=== PATIENT | male | born 1970 | race Caucasian/White ===

== ENCOUNTER 2022-03-28 21:32 | Emergency (ER) | payer OTHER, SELFPAY ==
[2022-03-28 21:38] VITALS: BP 101/56; BP 70/50; PULSE 100; PULSE 65; RESP 20; TEMP 36.6; O2SAT 94; BMI 26.9
[2022-03-28] MEDS: 0.9 % Sodium Chloride 1,000 ML 999 ML IVCONT (21:47)
[2022-03-28] MEDS: Famotidine/PF 20 MG/2 ML VIAL IVPUSH (21:47)
[2022-03-28] MEDS: methylPREDNISolone Sod Succ 125 MG/2 ML VIAL IVPUSH (21:47)
--- NOTE | 2022-03-28 21:52 | ED.ALLEREA ---
HPI - Allergic Reaction General Chief complaint: Allergic Reaction Stated complaint: allergic reaction, syncope Time Seen by Provider: 03/28/22 21:46 Source: patient and EMS Mode of arrival: EMS Limitations: no limitations History of Present Illness HPI narrative: Patient comes to the emergency room complaining of an allergic reaction to bees. Patient states that he was in the back of the building, outside he was stung multiple times by bees. EMS was called. Patient's initial systolic pressure was in the 60s, patient was altered. Related Data Previous Rx's Medication Instructions Recorded omeprazole 40 mg capsule,delayed 40 mg PO DAILY #30 caps 02/02/21 release epinephrine 0.3 mg/0.3 mL 0.3 mg (0.3 mL) IM Q4H PRN 03/29/22 injection, auto-injector (EpiPen) anaphylaxis #2 ea prednisone 20 mg tablet 40 mg PO DAILY 3 days #6 tabs 03/29/22 Allergies Allergy/AdvReac Type Severity Reaction Status Date / Time bee pollen [BEE STINGS] Allergy Unknown UNKNOWN Unverified 02/08/21 16:10 Review of Systems Review of Systems: Constitutional : No Weight loss, No Fever, No Chills, No Night Sweats, No Fatigue, No Malaise ENT/Mouth : No Hearing loss, No Ear Pain, No Nasal Congestion, No Sinus Pain, No Hoarseness, No sore throat, No Rhinorrhea, No Swallowing Difficulty Eyes: No Eye Pain, No Swelling, No Redness, No Foreign Body, No Discharge, No Vision Changes Cardiovascular : No Chest Pain, No SOB, No Dyspnea on Exertion, No Orthopnea, No Edema, No Palpitations Respiratory : No Cough, No Sputum, No Wheezing, No Smoke Exposure, No Dyspnea Gastrointestinal : No Nausea, No Vomiting, No Diarrhea, No Constipation, No abdominal Pain, No Hematochezia, No Melena Genitourinary : no irregular bleeding, No Dysuria, No Urinary Frequency, No Hematuria, No Urinary Incontinence, No Urgency, No Flank Pain, No Urinary Flow Changes, No Hesitancy Musculoskeletal : No joint pain, No Myalgias, No Joint Swelling Skin : No Skin Lesions, No rash Neuro : No Weakness, No Numbness, No Paresthesias, No Loss of Consciousness, No Dizziness, No Headache Psych : No Anxiety/Panic, No Depression, No SI/HI/AH/VH, No Social Issues, Heme/Lymph: No Bruising, No Bleeding,No Lymphadenopathy Endocrine : No Polyuria, No Polydipsia, No Temperature Intolerance [facility] Social History Social History (System 02/08/21 @ 16:10 by Ivis Smith) Alcohol intake: current Alcohol intake frequency: a few times a week Alcohol type: beer Patient Tobacco Use Status: Current everyday Tobacco user Smoked in Last 30 Days: Yes Use of substances other than those prescribed or required for medical reasons: Yes Substance Use Type: Marijuana Substance Use Frequency: Chronic Longstanding Advance Directives: No Advance Directives Information Provided: No Physical Exam ED Vital Signs: Vital Signs - 24 hr 03/28/22 21:38 03/28/22 23:59 Temperature 97.9 F 97.9 F Pulse Rate 65 63 Respiratory Rate 20 16 Blood Pressure 101/56 L 133/70 Pulse Oximetry 94 100 Oxygen Delivery Method Nasal Cannula Nasal Cannula Oxygen Flow Rate 2 BMI result Body Mass Index 26.9 Course Course Course Narrative: Patient received from EMS epinephrine 0.3 mg and 50 mg of Benadryl. Also, in the emergency room patient received 125 mg of Solu-Medrol and 20 mg of Pepcid, patient also received 1 L of normal saline. Overall, patient is doing much better, no hives, no skin erythema, lungs are clear. Patient complaining of leg pain, provided with Tylenol. Lower extremities are not swollen, no erythema. Discharge Plan Discharge Clinical Impression: Anaphylaxis Patient Disposition: Home, Self-Care Instructions: Insect Bite or Sting (ED), Anaphylaxis (ED) Additional Instructions: Please follow-up with your primary care physician tomorrow. If you have any worsening or new symptoms, please return to the emergency room or call 911 Prescriptions: New prednisone 20 mg tablet 40 mg PO DAILY 3 Days Qty: 6 0RF epinephrine [EpiPen] 0.3 mg/0.3 mL auto-injector 0.3 mg IM Q4H PRN (Reason: anaphylaxis) Qty: 2 0RF No Action omeprazole 40 mg capsule,delayed release(DR/EC) 40 mg PO DAILY Qty: 30 0RF
[2022-03-28 23:59] VITALS: BP 133/70; PULSE 63; RESP 16; TEMP 36.6; O2SAT 100
== END 2022-03-29 01:11 | disposition home or self-care (01) ==
PROVIDERS: Emergency Provider Emergency Medicine
DX: T78.2XXA Anaphylactic shock, unspecified, initial encounter (principal); T63.441A Toxic effect of venom of bees, accidental (unintentional), initial encounter; X58.XXXA Exposure to other specified factors, initial encounter; F17.200 Nicotine dependence, unspecified, uncomplicated; F12.90 Cannabis use, unspecified, uncomplicated
CPT/HCPCS: 96361; 96374; 96375; 99284; J2930

== ENCOUNTER 2022-12-09 00:15 | Emergency (ER) | payer OTHER, SELFPAY ==
[2022-12-09 00:20] VITALS: BP 164/72; PULSE 63; O2SAT 96; BMI 19.8
[2022-12-09 00:29] VITALS: BP 158/94; PULSE 98; RESP 18; TEMP 37.2; O2SAT 97
--- NOTE | 2022-12-09 00:36 | ED.GENADULT ---
HPI - General Adult General Chief complaint: ETOH/Substance Use Stated complaint: Drug use Time Seen by Provider: 12/09/22 00:22 Source: patient and EMS Mode of arrival: EMS Limitations: no limitations History of Present Illness HPI narrative: 52-year-old male with history of drug abuse presents found unresponsive. He was arousable by painful stimuli. Since then he has been alert and awake. He denies suicidal or homicidal ideation. He admits to smoking marijuana but he denies any additional drug use or alcohol ingestion. Denies any chest pain, shortness breath, palpitations. He describes the symptoms as mild at this time. He would like to go home. Related Data Previous Rx's Medication Instructions Recorded omeprazole 40 mg capsule,delayed 40 mg PO DAILY #30 caps 02/02/21 release epinephrine 0.3 mg/0.3 mL 0.3 mg (0.3 mL) IM Q4H PRN 03/29/22 injection, auto-injector (EpiPen) anaphylaxis #2 ea prednisone 20 mg tablet 40 mg PO DAILY 3 days #6 tabs 03/29/22 Allergies Allergy/AdvReac Type Severity Reaction Status Date / Time bee pollen [BEE STINGS] Allergy Unknown UNKNOWN Unverified 02/08/21 16:10 [facility], [facility] Social History Social History Alcohol intake: unknown Patient Tobacco Use Status: Current everyday Tobacco user Smoked in Last 30 Days: No Use of substances other than those prescribed or required for medical reasons: Unknown Substance Use Type: Marijuana Advance Directives: No Advance Directives Information Provided: No Physical Exam ED Vital Signs: Vital Signs - 24 hr 12/09/22 00:29 Temperature 98.9 F Pulse Rate 98 Respiratory Rate 18 Blood Pressure 158/94 H Pulse Oximetry 97 Oxygen Delivery Method Room Air BMI result Body Mass Index 19.8 GEN: Well developed, no acute distress, alert, oriented HEENT: Normocephalic, atraumatic, normal external ears, nose appears normal, no oropharyngeal edema or exudates Eyes: Normal to appearance Neck: Supple, no lymphadenopathy Respiratory: Talks in complete sentences, no respiratory distress, clear to auscultation bilaterally Cardiovascular: Regular rate and rhythm, no murmurs rubs or gallops Abdomen: Soft, nontender, nondistended, no guarding, no rebound Back: No CVA tenderness Extremities: No clubbing cyanosis or edema Neurologic: No focal neurologic deficits, cranial nerves 2-12 intact, strength is 5/5 bilaterally, gait normal Skin: No rash Course Course Course Narrative: 52-year-old male presents with a period of unresponsiveness. Denies opioid use. He admits using marijuana. Denies alcohol ingestion. He has no psychiatric complaints such as suicidal ideation, homicidal ideation, anxiety, depression. He admits to having some stress in his life. Patient will be observed for period of 2 hours. Assuming he does well, he will be discharged around 2:00 a.m.. Reevaluation(s) Reevaluation #1: Care was transitioned to Dr. Galeano, pending clinical sobriety and an appropriate disposition Time: 07:07 Medical Decision Making Medical Decision Making MDM Narrative: 52-year-old male presents with unresponsiveness for period of time. He responded to painful stimuli. At this time he otherwise feels well. Denies falls or trauma. Denies any pain or discomfort. Denies any psychiatric complaints wishes SI, HI, depression, anxiety. Patient will be observed to make sure he is appropriate and maintains his alertness. At this time, there is no indication for laboratory analysis. Differential Diagnosis Differential Diagnoses: The differential diagnosis associated with the presentation includes (Intoxication trauma drug use, overdose, fatigue, somnolence) Independent Historian Clinical information obtained from an independent historian. History obtained from or confirmed by: EMS Discharge Plan Discharge Clinical Impression: Unresponsive Patient Disposition: Home, Self-Care Instructions: Disorders of Consciousness (DC) Prescriptions: No Action omeprazole 40 mg capsule,delayed release(DR/EC) 40 mg PO DAILY Qty: 30 0RF prednisone 20 mg tablet 40 mg PO DAILY 3 Days Qty: 6 0RF epinephrine [EpiPen] 0.3 mg/0.3 mL auto-injector 0.3 mg IM Q4H PRN (Reason: anaphylaxis) Qty: 2 0RF Referrals: [facility] [place] Family Medicine [Provider Group] Interventions: ED Discharge Assessment Last Done: 12/09/22 04:18 Discharge Date/Time: 12/09/22 04:19
--- NOTE | 2022-12-09 04:12 | PC.NURSE ---
Took over care at 3:00, pt a&o, able to respond to question correctly, Reviewed discharge instruction and pt verbalized understanding.
== END 2022-12-09 04:19 | disposition home or self-care (01) ==
PROVIDERS: Emergency Provider Emergency Medicine; PCP Internal Medicine
DX: R40.4 Transient alteration of awareness (principal); F19.10 Other psychoactive substance abuse, uncomplicated; F12.90 Cannabis use, unspecified, uncomplicated; F17.200 Nicotine dependence, unspecified, uncomplicated; Z79.899 Other long term (current) drug therapy
CPT/HCPCS: 99284

== ENCOUNTER 2023-05-16 22:43 | Emergency (ER) | payer OTHER, SELFPAY ==
[2023-05-16 22:46] VITALS: BP 142/87; PULSE 66; RESP 16; TEMP 36.7; O2SAT 97; BMI 28.5
[2023-05-17 01:12] VITALS: BP 152/92; PULSE 52; RESP 12; TEMP 36.6; O2SAT 97
--- NOTE | 2023-05-17 01:13 | PC.NURSE ---
Pt ca&ox4 no signs of distress. Pt denies sob and pain Pt reports being stung by a bee at around 4pm today. Left hand swollen and warm to touch. Plan of care ongoing.
--- NOTE | 2023-05-17 01:19 | ED_ITS ---
HPI - Allergic Reaction General Chief complaint: Allergic Reaction Stated complaint: bee sting allegric reaction Time Seen by Provider: 05/17/23 01:16 Source: patient Mode of arrival: ambulatory Limitations: no limitations History of Present Illness HPI narrative: Patient got stung by a bee yesterday on his dorsum of the right hand does have allergy of bee stings in the past comes in with swelling of the right hand with slight erythema no shortness of breath no other rash otherwise patient feels normal Related Data Previous Rx's Medication Instructions Recorded omeprazole 40 mg capsule,delayed 40 mg PO DAILY #30 caps 02/02/21 release epinephrine 0.3 mg/0.3 mL 0.3 mg (0.3 mL) IM Q4H PRN 03/29/22 injection, auto-injector (EpiPen) anaphylaxis #2 ea prednisone 20 mg tablet 40 mg PO DAILY 3 days #6 tabs 03/29/22 cephalexin 500 mg capsule 500 mg PO QID 10 days #40 caps 05/17/23 diphenhydramine HCl 25 mg capsule 50 mg PO TID PRN allergic reaction 05/17/23 (Benadryl) #30 caps doxycycline hyclate 100 mg tablet 100 mg PO BID #20 tabs 05/17/23 Allergies Allergy/AdvReac Type Severity Reaction Status Date / Time bee pollen [BEE STINGS] Allergy Unknown UNKNOWN Unverified 02/08/21 16:10 Review of Systems Review of Systems: Yes all other systems are reviewed and are negative [facility] Social History Social History Alcohol intake: unknown Patient Tobacco Use Status: Current everyday Tobacco user Smoked in Last 30 Days: Yes Use of substances other than those prescribed or required for medical reasons: No Substance Use Type: Marijuana Advance Directives: No Advance Directives Information Provided: Yes Physical Exam ED Vital Signs: Vital Signs - 24 hr 05/16/23 22:46 05/17/23 01:12 Temperature 98.1 F 97.9 F Pulse Rate 66 52 Respiratory Rate 16 12 Blood Pressure 142/87 H 152/92 H Pulse Oximetry 97 97 Oxygen Delivery Method Room Air Room Air BMI result Body Mass Index 28.5 Appearance: Alert. Oriented X3. No acute distress. ENT: Pharynx normal. Oral Mucosa moist Neck: Normal inspection. Neck supple. CVS: Normal heart rate and rhythm. Pulses normal. Respiratory: No respiratory distress. Equal air entry bilateral, no whee zing/rales/rhonchi Abdomen: Soft and nontender. Bowel sounds are present, no mass palpable, no CVA tenderness Skin: Skin warm and dry. Normal skin color. Normal skin turgor. Neuro: Oriented X 3. Extrem Hand/finger images: 1. Diffuse erythema good fist neurovascular intact Medications Administered Discontinued Medications Generic Name Dose Route Start Last Admin Trade Name Freq PRN Reason Stop Dose Admin Cephalexin HCl 500 mg 05/17/23 01:42 05/17/23 01:50 Cephalexin 500 Mg Capsule PO 05/17/23 01:43 500 mg ONCE ONE Administration Dexamethasone 10 mg 05/17/23 01:42 05/17/23 01:51 Dexamethasone 2 Mg Tablet PO 05/17/23 01:43 10 mg ONCE ONE Administration Diphenhydramine HCl 50 mg 05/17/23 01:40 05/17/23 01:45 Diphenhydramine Hcl 25 Mg Capsule PO 05/17/23 01:41 50 mg ONCE ONE Administration Doxycycline Monohydrate 100 mg 05/17/23 01:40 05/17/23 01:49 Doxycycline Monohydrate 100 Mg Capsule PO 05/17/23 01:41 100 mg ONCE ONE Administration Discharge Plan Discharge Clinical Impression: Bee sting reaction, Cellulitis Patient Disposition: Home, Self-Care Instructions: Cellulitis (ED), Insect Bite or Sting (ED) Additional Instructions: Take medication as prescribed Antibiotic for infection Keep your right hand elevated Prescriptions: New cephalexin 500 mg capsule 500 mg PO QID 10 Days Qty: 40 0RF doxycycline hyclate 100 mg tablet 100 mg PO BID Qty: 20 0RF diphenhydramine HCl [Benadryl] 25 mg capsule 50 mg PO TID PRN (Reason: allergic reaction) Qty: 30 0RF No Action omeprazole 40 mg capsule,delayed release(DR/EC) 40 mg PO DAILY Qty: 30 0RF prednisone 20 mg tablet 40 mg PO DAILY 3 Days Qty: 6 0RF epinephrine [EpiPen] 0.3 mg/0.3 mL auto-injector 0.3 mg IM Q4H PRN (Reason: anaphylaxis) Qty: 2 0RF
[2023-05-17] MEDS: diphenhydrAMINE HCL 25 MG CAPSULE 50 MG PO (01:45)
[2023-05-17] MEDS: Doxycycline Monohydrate 100 MG CAPSULE PO (01:49)
[2023-05-17] MEDS: cephALEXin 500 MG CAPSULE PO (01:50)
[2023-05-17] MEDS: dexAMETHasone 2 MG TABLET 10 MG PO (01:51)
== END 2023-05-17 02:06 | disposition home or self-care (01) ==
PROVIDERS: Emergency Provider Internal Medicine; PCP Internal Medicine
DX: L03.113 Cellulitis of right upper limb (principal); Z79.899 Other long term (current) drug therapy
CPT/HCPCS: 99283; 99284; J8540

== ENCOUNTER → 2024-02-26 14:59 | Outpatient (AMB) | payer OTHER, SELFPAY ==
[2024-02-26 15:03] VITALS: BP 162/90; PULSE 57; O2SAT 98
--- NOTE | 2024-02-26 15:03 | MHC.OFFWIV ---
Intake Vital Signs 02/26/24 15:03 Height 6 ft 1 in BP 162/90 H Blood Pressure Location Lt brachial Position Sitting Pulse 57 Pulse Source Pulse Oximeter Pulse Oximetry (%) 98 Oxygen Delivery Method Room Air Intake Visit Reasons: EP bee Sting/Allergic Intake Note: pt is here for bee sting allergic Patient Tobacco Use Status: Current everyday Tobacco user Allergies bee pollen [BEE STINGS] Allergy (Unknown, Verified 02/26/24 15:05) UNKNOWN Do you need a note to return to daycare/school/sports/work: No HPI HPI Comments History of Present Illness Details Pt present to office with bee sting Occured 10 minutes [employer] States in past had bee sting requiring hospital trip and epi States was stung by 2 bees this time States edema, erythema to arm lesions Had associated facial redness and tingling at arrival No medicine taken prior to coming to office States no throat tightness, SOB or tongue edema PFSH Social History Alcohol intake: unknown Patient Tobacco Use Status: Current everyday Tobacco user Substance Use Type: Marijuana Review of Systems Const Denies chills and Denies fever(s) ENT Denies dizziness, Denies sore throat, Reports throat swelling and Reports tongue swelling Card Denies chest pain, Denies syncope and Denies dyspnea on exertion Resp Denies cough and Denies dyspnea on exertion GI Denies nausea and Denies vomiting Skin/Breast Reports pruritus, Reports lesions and Reports erythema Neuro Denies dizziness and Denies syncope Aller/Immun Reports throat swelling and Reports tongue swelling Physical Exam Vital Signs: Last Vital Signs Pulse 57 02/26/24 15:03 BP 162/90 H 02/26/24 15:03 Pulse Ox 98 02/26/24 15:03 Oxygen Delivery Method Room Air 02/26/24 15:03 General: Non-toxic, NAD. Speaking full sentences. Skin: Warm dry throughout R medial elbow and L distal wrist + red wounds with edema and erythema surrounding. + hives on upper R extremity Eye: EOMI HENT: Airway patent. Uvula midline. No pharyngeal erythema or edema. No [employer]. Bilateral canals clear. TM non-erythematous, non-bulging. No TM perforation or hemotympanum noted. Respiratory: CTA bilaterally. No wheezes, rales or rhonchi Cardiac: RRR. No murmur MSK: Full ROM extremities. Neurology: A/O. No aphasia or facial droop. Gait without abnormality Psych: Good mood and affect Assessment & Plan Assessment & Plan (1) Bee sting: Code(s): T63.441A - Toxic effect of venom of bees, accidental (unintentional), initial encounter Qualifiers: Encounter type: initial encounter Injury intent: accidental or unintentional Qualified Code(s): T63.441A - Toxic effect of venom of bees, accidental (unintentional), initial encounter Plan: Pt seen immediately upon arrival Administered 50mg po Benadryl and 60mg po Prednisone Reassessed 5 minutes later and facial eedma and erythema improved. Still no SOB or throat tightness. No tongue edema. States face numbness/hottness improving He was re-assessed at 15 minutes and no facial numbness, SOB, throat tightness, tongue edema. BP repeated 150/90 and 99 O2 with 53bpm pulse temp 97.8. With hx of anaphylaxis he will need monitoring in ER 3:22 EMT arrival and waiting on ambulance. Will go to ER for evaluation. Epi held at this time. Orders: Orders AMB Diphenhydramine Adult Dose Today T63.441A - Toxic effect of venom of bees, accidental (unintentional), initial encounter AMB Prednisone Adult Dose Today T63.441A - Toxic effect of venom of bees, accidental (unintentional), initial encounter Medications: New prednisone 20 mg PO ONCE 3 tabs 0RF T63.441A - Toxic effect of venom of bees, accidental (unintentional), initial encounter diphenhydramine HCl 25 mg PO ONCE 2 tabs 0RF T63.441A - Toxic effect of venom of bees, accidental (unintentional), initial encounter Discontinued prednisone Discontinued Reason: Patient Completed Course 40 mg (2 x 20 mg) PO DAILY 3 days 6 tabs 0RF doxycycline hyclate Discontinued Reason: Patient Completed Course 100 mg PO BID 20 tabs 0RF cephalexin Discontinued Reason: Patient Completed Course 500 mg PO QID 10 days 40 caps 0RF diphenhydramine HCl (Benadryl) Discontinued Reason: Patient Completed Course 50 mg (2 x 25 mg) PO TID PRN 30 caps 0RF allergic reaction Coding Level of Care Code New Pt Level 4 (72517) Diagnoses Bee sting, accidental or unintentional, initial encounter T63.441A Encounter type: initial encounter Injury intent: accidental or unintentional
== END ==
PROVIDERS: PCP Internal Medicine; Visit Provider Physician Assistant
DX: T63.441A Toxic effect of venom of bees, accidental (unintentional), initial encounter (principal)
CPT/HCPCS: 99204

== ENCOUNTER 2024-02-26 15:44 | Emergency (ER) | payer OTHER, SELFPAY ==
[2024-02-26 15:54] VITALS: BP 143/80; BP 153/85; PULSE 54; PULSE 67; RESP 16; TEMP 36.9; O2SAT 100; O2SAT 97; BMI 27.0
--- NOTE | 2024-02-26 17:07 | ED_ITS ---
HPI - Allergic Reaction General Chief complaint: Allergic Reaction Stated complaint: stung by a bee, is allergic Time Seen by Provider: 02/26/24 17:05 Source: patient, EMS, RN notes reviewed and old records reviewed Mode of arrival: EMS Limitations: no limitations History of Present Illness ED Provider: BRIE PATTERSON PA-C HPI narrative: 53-year-old male with no significant past medical history presents to the emergency department today via EMS from urgent care for evaluation of bilateral upper extremity rash following bee sting sustained prior to arrival. 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 States that while outside today, he sustained to bee stings, one 2 right elbow in one to left wrist. He denies using his EpiPen. Reports localized reaction around each bee sting for which he was evaluated at urgent care for. At urgent care, patient was given 50 mg of Benadryl and 60 mg of prednisone by mouth. He was advised to come to the ED for further evaluation and EMS was called for transport. On my initial evaluation, patient reports significant improvement in redness surrounding bee stings following medication administration. Denies any other concerns at this time. Does not have a history of anaphylactic reaction to bees. Denies fever, chills, N/V, abdominal pain, shortness of breath, wheezing, chest pain, throat closing sensation. Related Data Previous Rx's ?Medication ?Instructions ?Recorded omeprazole 40 mg capsule,delayed 40 mg PO DAILY #30 caps 02/02/21 release epinephrine 0.3 mg/0.3 mL 0.3 mg (0.3 mL) IM Q4H PRN 03/29/22 injection, auto-injector (EpiPen) anaphylaxis #2 ea cetirizine 10 mg tablet (Zyrtec) 10 mg PO DAILY PRN allergy 02/26/24 symptoms #14 tabs diphenhydramine HCl 25 mg tablet 25 mg PO Q6-8H PRN allergic 02/26/24 (Benadryl Allergy) reaction #10 tabs epinephrine 0.3 mg/0.3 mL 0.3 mg (0.3 mL) IM Q10M PRN 02/26/24 injection, auto-injector (EpiPen) anaphylaxis #2 ea prednisone 20 mg tablet 20 mg PO DAILY 4 days #4 tabs 02/26/24 Allergies Allergy/AdvReac Type Severity Reaction Status Date / Time bee pollen [BEE STINGS] Allergy Unknown Hives Verified 02/26/24 15:56 Review of Systems Review of Systems: Constitutional: No fever, chills, fatigue, night sweats, weight changes ENT/Mouth: No ear pain, hearing loss, nasal congestion, sinus pain, rhinorrhea, sore throat Eyes: No eye pain, swelling, redness, vision changes, discharge Cardio: No chest pain, palpitations, LEE, orthopnea, peripheral edema Pulm: No SOB, cough, sputum, wheezing, dyspnea, hemoptysis GI: No nausea, vomiting, hematemesis, abdominal pain, diarrhea, constipation, hematochezia, melena : No irregular bleeding, dysuria, frequency, urgency, hesitancy, hematuria, flank pain, urinary flow changes, urinary incontinence or retention MSK: No back pain, neck pain, joint pain, myalgias Skin: No lesions, +bee sting, +rash Neuro: No weakness, numbness, paresthesias, LOC, dizziness, headache Psych: No anxiety/panic, depression, SI/HI, AH/VH All other systems reviewed and are negative. [facility] Past Medical History Attestation statement: The following information was validated with the patient. Source: old records reviewed and nursing notes reviewed Social History Social History Alcohol intake: unknown Patient Tobacco Use Status: Current everyday Tobacco user Substance Use Type: Marijuana Advance Directives: No Advance Directives Information Provided: No Do you have a plan to hurt others: No Plan Physical Exam ED Vital Signs: Vital Signs - 24 hr 02/26/24 15:54 02/26/24 17:25 Temperature 98.4 F 98.4 F Pulse Rate 67 67 Respiratory Rate 16 16 Blood Pressure 153/85 H 153/85 H Pulse Oximetry 97 97 Oxygen Delivery Method Room Air Room Air BMI result Body Mass Index 27.0 vital signs stable Const General: cooperative, healthy appearing, comfortable and no acute distress Orientation/consciousness: patient oriented x3 Limitations: no limitations HENMT Head: Yes normal to inspection, Yes No palpable skull fracture present, Yes normocephalic and Yes atraumatic Eyes General: appearance normal, both eyes and all related structures Conjunctivae: conjunctivae normal Sclerae: sclerae normal Pupils: Equal, round and reactive pupils present Neck Neck: Yes normal visual inspection, Yes full ROM and Yes no lymphadenopathy Chest Chest palpation & inspection: normal inspection of the chest and normal palpation of entire chest wall Resp Other: Airway patent. No signs of respiratory distress. No tripoding. Lungs are CTA bilaterally. No wheezes or rhonchi. Effort & Inspection: normal respiratory effort Cardio Rate: regular rate Rhythm: regular rhythm GI Inspection: Yes normal to inspection Palpation (GI): Soft to palpation and nontender Skin Other: + bee sting noted to medial aspect of right elbow and another bee sting noted to left wrist with minimal amount of localized surrounding erythema. No steaking. Neuro General: patient oriented x3, gait normal and tone normal Cranial nerves: Yes Equal, round and reactive pupils present Course Course Course Narrative: 1708-- Patient observed in the ED for approximately an hour and a half with improvement in extremity rash. No signs of respiratory distress. Airway patent. No concern for anaphylactic reaction. He did not use his EpiPen today. No concern for delayed reaction. Patient received Pepcid and prednisone in the ED today. Will discharge home with Zyrtec, Benadryl, prednisone, EpiPen. Educfortunato rawls patient on EpiPen use. He verbalizes understanding. Patient has remained stable throughout ED visit today. Discussed worrisome signs and symptoms and when to return to the ED. All questions answered at this time. Patient is agreeable with disposition and stable for discharge. Medications Administered Discontinued Medications Generic Name Dose Route Start Last Admin Trade Name Freq PRN Reason Stop Dose Admin Famotidine 20 mg 02/26/24 17:08 02/26/24 17:21 Famotidine 20 Mg Tablet PO 02/26/24 17:09 20 mg ONCE ONE Administration Medical Decision Making Medical Decision Making [facility] Narrative: 53-year-old male with no significant past medical history presents to the emergency department today via EMS from urgent care for evaluation of bilateral upper extremity rash following bee sting sustained prior to arrival. Patient is slightly hypertensive to 153/85, vitals otherwise WNL. Not hypoxic. Nontoxic- appearing and in no acute distress. No respiratory distress. Airway is patent. Speaking in full clear sentences. Lungs are CTA bilaterally, no wheezes or rhonchi. Posterior oropharynx WNL, no edema. Uvula midline. On exam, bee sting noted to medial aspect of right elbow and another bee sting noted to left wrist with minimal amount of localized surrounding erythema. NV intact distally. abd soft, ND/NT. AOX3. Differential diagnosis includes allergic reaction, insect bite. unlikely anaphylaxis Plan for medications, re-evaluation, and disposition. Differential Diagnosis Differential Diagnoses: The differential diagnosis associated with the presentation includes as above. Admission/Observation Not indicated. External Record Review External record reviewed: Inpatient record Tests considered The following testing was considered but not selected: I considered obtaining lab work however patient with localized skin reaction, not warranted at this time. Prescription Management I considered prescription management with: Other (Benadryl, Zyrtec, prednisone, EpiPen) Discharge Plan Discharge Clinical Impression: Allergic reaction, Urticaria Bee sting Qualifiers: Encounter type: initial encounter Injury intent: accidental or unintentional Qualified Code(s): T63.441A - Toxic effect of venom of bees, accidental (unintentional), initial encounter Patient Disposition: Home, Self-Care Instructions: Urticaria (ED), Insect Bite or Sting (ED), Acute Rash (ED), Allergy Testing (ED) Additional Instructions: You were seen in the ED today following bee sting with allergic reaction. You were treated with Benadryl at urgent care with improvement. You were administered Pepcid and prednisone in the ED today. You have had no further reaction. Prednisone as a steroid that has been sent to your pharmacy. Take your next dose tomorrow as you already received a dose in the ED today. Benadryl has been sent to your pharmacy. Take this every 8 hours as needed for itching/rash. Zyrtec has been sent to your pharmacy to take as needed for itching/rash. An EpiPen has been sent to your pharmacy for you to use for acute allergic reactions were you feel as though your throat is closing or you are have having difficulty breathing. If you use your EpiPen, you need to call 911 for transport to the ED for further evaluation. Follow up with pcp as needed. Return with new or worsening symptoms. In the case of an emergency call 911. Prescriptions: New diphenhydramine HCl [Benadryl Allergy] 25 mg tablet 25 mg PO Q6-8H PRN (Reason: allergic reaction) Qty: 10 0RF cetirizine [Zyrtec] 10 mg tablet 10 mg PO DAILY PRN (Reason: allergy symptoms) Qty: 14 0RF prednisone 20 mg tablet 20 mg PO DAILY 4 Days Qty: 4 0RF epinephrine [EpiPen] 0.3 mg/0.3 mL auto-injector 0.3 mg IM Q10M PRN (Reason: anaphylaxis) Qty: 2 0RF Rx Instructions: for 2 doses No Action omeprazole 40 mg capsule,delayed release(DR/EC) 40 mg PO DAILY Qty: 30 0RF epinephrine [EpiPen] 0.3 mg/0.3 mL auto-injector 0.3 mg IM Q4H PRN (Reason: anaphylaxis) Qty: 2 0RF Interventions: ED Discharge Assessment Last Done: 02/26/24 17:25 Discharge Date/Time: 02/26/24 17:26 Print Language: Bel[place]ian
[2024-02-26] MEDS: Famotidine 20 MG TABLET PO (17:21)
[2024-02-26 17:25] VITALS: BP 153/85; PULSE 67; RESP 16; TEMP 36.9; O2SAT 97
== END 2024-02-26 17:26 | disposition home or self-care (01) ==
PROVIDERS: Emergency Provider Emergency Medicine Emergency Medical Services
DX: T63.441A Toxic effect of venom of bees, accidental (unintentional), initial encounter (principal); L50.0 Allergic urticaria; Y92.9 Unspecified place or not applicable; F17.200 Nicotine dependence, unspecified, uncomplicated; F12.90 Cannabis use, unspecified, uncomplicated
CPT/HCPCS: 99282; 99283